=== PATIENT | female | born 1935 | race Caucasian/White ===

== ENCOUNTER 2017-12-30 06:09 | Day surgery (SDC) | payer BC, MEDICARE ==
[~2017-12-30 06:09] MED LIST: ACETAMINOPHEN 325 MG TAB PO; SLF 3 ML SYR IV
[2017-12-30] MEDS ORDERED: PHENYLEPHRINE 2.5% OPHTH SOL 2ML As Ordered (06:28)
[2017-12-30] MEDS ORDERED: CYCLOPENTOLATE 2% OPHTH SOLN 2ML BTL As Ordered (06:28)
[2017-12-30] MEDS ORDERED: TROPICAMIDE 1% OPHTH SOLN 2ML As Ordered (06:28)
[2017-12-30] MEDS ORDERED: OFLOXACIN 0.3 % (OCUFLOX) OPTH SOL 5ML As Ordered (06:28)
[2017-12-30 06:50] LABS: BEDSIDE GLUCOSE 90 MG/DL (83-110)
[2017-12-30] MEDS ORDERED: PHENYLEPHRINE HCL 10 % OPHTH. SOL 5ML OS (07:00)
[2017-12-30] MEDS ORDERED: PROPARACAINE 0.5% OPHTH SOL 15ML OS (07:01)
[2017-12-30] MEDS: PHENYLEPHRINE 2.5% OPHTH SOL 2ML OS (07:02)
[2017-12-30] MEDS: OFLOXACIN 0.3 % (OCUFLOX) OPTH SOL 5ML OS (07:02)
[2017-12-30] MEDS: TROPICAMIDE 1% OPHTH SOLN 2ML OS (07:02)
[2017-12-30] MEDS: LIDOCAINE 3.5 % 1ML OPHTH TOPICAL GEL OU (07:02)
[2017-12-30] MEDS: CYCLOPENTOLATE 2% OPHTH SOLN 2ML BTL OS (07:02)
[2017-12-30] MEDS ORDERED: MIDAZOLAM INJ 2 MG/2 ML VIAL (J2250) As Ordered (08:10)
[2017-12-30] MEDS: POVIDONE-IODINE 5% OPHTH PREP SOL 30ML As Ordered (08:10)
[2017-12-30] MEDS ORDERED: fentaNYL 100 MCG/2 ML INJECTION (J3010) As Ordered (08:10)
[2017-12-30] MEDS: CEFUROXIME 1MG/0.1ML INTRACAMERAL INJ As Ordered (08:14)
[2017-12-30] MEDS: HEALON DUET (HEALON 10MG/ML 0.55ML & HEALON ENDOCOAT 30MG/ML 0.85ML) As Ordered (08:14)
[2017-12-30] MEDS: LIDOCAINE 1% SDV 5 ML VIAL As Ordered (08:14)
[2017-12-30] MEDS: BALANCED SALT IRRIGATION SOLUTION 500ML BAG (FOR OR EYE MACHINE) As Ordered (08:15)
[2017-12-30] MEDS: ONDANSETRON 4MG/2ML VIAL (J2405) IV (08:55)
[2017-12-30] MEDS: KETOROLAC 0.5% OPHTH SOLN OS (09:00)
[2017-12-30] MEDS: AcetaZOLAMIDE 500 MG ER CAP PO (09:00)
[2017-12-30] MEDS ORDERED: TRIMETHOBENZAMIDE 300 MG CAP PO (09:00)
== END 2017-12-30 09:55 | disposition home or self-care (01) ==
LOC: M SDC 06:09
DX: H25.12 Age-related nuclear cataract, left eye (principal); I25.2 Old myocardial infarction; I10 Essential (primary) hypertension; Z98.61 Coronary angioplasty status; E78.5 Hyperlipidemia, unspecified; E03.9 Hypothyroidism, unspecified; F41.9 Anxiety disorder, unspecified; F32.9 Major depressive disorder, single episode, unspecified; Z79.82 Long term (current) use of aspirin; Z79.899 Other long term (current) drug therapy
CPT/HCPCS: 66984

== ENCOUNTER → 2020-11-29 | Outpatient (REF) | payer MEDICARE ==
[~2020-11-29] MED LIST changes: -ACETAMINOPHEN 325 MG TAB PO; +ASPI81TA26 PO; +D 1010004 PO; +LEVO75TA4 PO; +METO1TAB7 PO; -SLF 3 ML SYR IV; +[UNRECOGNIZED DRUG - CODE] PO
== END ==
LOC: M LAB REF 17:10
PROVIDERS: ATTEND Nurse Practitioner Family
DX: E83.42 Hypomagnesemia (principal)